=== PATIENT | female | born 1965 | race Caucasian/White ===

== ENCOUNTER 2017-11-10 17:07 | Emergency (ER) | payer SELFPAY ==
[2017-11-10 17:37] LABS: URINE SOURCE CLEAN C
[2017-11-10 17:47] LABS: URINE BILIRUBIN NEGATIVE (NEGATIVE); URINE BLOOD SMALL (NEGATIVE); URINE GLUCOSE (UA) NEGATIVE (NEGATIVE); URINE KETONE NEGATIVE (NEGATIVE); URINE LEUKOCYTE ESTERASE MODERATE (NEGATIVE); URINE MICROSCOPIC INDICATED? YES; URINE NITRATE NEGATIVE (NEGATIVE); URINE PH 6.5 (4.6 - 8.0); URINE PROTEIN 100 mg/dL (NEGATIVE); URINE UROBILINOGEN 0.2 E.U./dL (0.2 - 1.0)
--- NOTE | 2017-11-10 17:52 | ED Physician Chart ---
ED Chief Complaint/HPI - Patient Information Date Seen:: 11/10/17 Time Seen:: 17:40 Chief Complaint:: DYSURIA History of Present Illness:: 52 YR OLD FEMALE WITH FREQUENT URINATION AND DYSURIA PT LOWER ABD DISCOMFORT 8/ 10 BURNING IN NATURE Allergies:: Allergies Allergy/AdvReac Type Severity Reaction Status Date / Time No Known Allergies Allergy Verified 11/10/17 17:31 Vitals:: Vital Signs - 8 hr 11/10/17 17:15 Temp 98.2 F HR 70 RR 18 BP 138/73 O2 Sat % 98 ED Review of Systems - Review of Systems General/Constitutional: No fever Skin: No skin lesions Head: No headache Eyes: No loss of vision ENT: No earache Neck: No neck pain Cardio Vascular: No chest pain Pulmonary: No SOB GI: No vomiting G/U: No dysuria Musculoskeletal: No bone or joint pain Psychiatric: No depression Hematopoietic: No bruising Neurological: No focal symptoms Family Medical History - Family Member Mother History Unknown: Yes ED Septic Shock - . Is Septic Shock (SBP<90, OR Lactate>4 mmol\L) present?: No - <6hrs of presentation: Vital Signs: Vital Signs - 8 hr 11/10/17 17:15 Temp 98.2 F HR 70 RR 18 BP 138/73 O2 Sat % 98 ED Reassessment (Disposition) - Reassessment Reassessment:: DYSURIA UTI - Diagnosis Diagnosis:: UTI DYSURIA ABD PAIN - Aftercare/Follow up Instructions Aftercare/Follow-Up Instructions:: Counseled pt regarding lab results/diagnosis & need follow up - Patient Disposition Condition at Disposition:: Stable
[2017-11-10 18:05] LABS: URINE BACTERIA 1+ /hpf (NONE SEEN); URINE CLARITY HAZY (CLEAR); URINE COLOR YELLOW; URINE EPITHELIAL CELLS FEW /lpf (FEW)
== END 2017-11-10 18:30 | disposition home or self-care (01) ==
LOC: ER 17:07
DX: N39.0 Urinary tract infection, site not specified (principal)
CPT/HCPCS: 99283; 96372; 81001; J0696; Z7502

== ENCOUNTER 2018-03-30 16:20 | Inpatient (IN) | payer MEDICAID ==
[2018-03-30] MEDS ORDERED: Sodium Chloride 0.9% 1,000 ML IV ONE ×2 (16:29→19:16)
--- NOTE | 2018-03-30 16:42 | ED Physician Chart ---
ED Chief Complaint/HPI - Patient Information Date Seen:: 03/30/18 Time Seen:: 16:37 Chief Complaint:: vomiting History of Present Illness:: this is a 53 yo female with generalized abdominal pain associated with vomiting for three days. she is also concerned about vaginal pain that has been there for sometime but hurting more now. she denies having fever and diarrhea. Allergies:: Allergies Allergy/AdvReac Type Severity Reaction Status Date / Time No Known Allergies Allergy Verified 11/10/17 17:31 Vitals:: Vital Signs - 8 hr 03/30/18 16:26 Temp 97.3 F HR 78 RR 22 BP 149/96 O2 Sat % 100 Historian:: Patient Review:: Nurse's Note Reviewed, Old Chart Reviewed ED Review of Systems - Review of Systems General/Constitutional: No fever, No chills, No weight loss, No weakness, No diaphoresis, No edema, No loss of appetite Skin: No skin lesions, No rash, No bruising Head: No headache, No light-headedness Eyes: No loss of vision, No pain, No diplopia ENT: No earache, No nasal drainage, No sore throat, No tinnitus Neck: No neck pain, No swelling, No thyromegaly, No stiffness, No mass noted Cardio Vascular: No chest pain, No palpitations, No PND, No orthopnea, No edema Pulmonary: No SOB, No cough, No sputum, No wheezing GI: Nausea, Vomiting, No diarrhea, Pain, No melena, No hematochezia, No constipation, No hematemesis G/U: No dysuria, No frequency, No hematuria Talent Assistant: Other (vaginal pain) Musculoskeletal: No bone or joint pain, No back pain, No muscle pain Endocrine: No polyuria, No polydipsia Psychiatric: No prior psych history, No depression, No anxiety, No suicidal ideation Hematopoietic: No bruising, No lymphadenopathy Allergic/Immuno: No urticaria, No angioedema Neurological: No syncope, No focal symptoms, No weakness, No paresthesia, No headache, No seizure, No dizziness, No confusion, No vertigo ED Past Medical History - Past Medical History Obtainable: Yes Past Medical History: No significant medical hx Family History: None Social History: Non Smoker, No Alcohol, No Drug Use, Employed Surgical History: Psychiatricy History: None Medication: Reviewed Family Medical History - Family Member Mother History Unknown: Yes ED Physical Exam - Physical Examination General/Constitutional: Awake, Well-developed, well-nourished, Alert, No distress, GCS 15, Non-toxic appearing, Ambulatory Head: Atraumatic Eyes: Lids, conjuctiva normal, PERRL, EOMI Skin: Nl inspection, No rash, No skin lesions, No ecchymosis, Well hydrated, No lymphadenopathy ENMT: External ears, nose nl, Nasal exam nl, Lips, teeth, gums nl Neck: Nontender, Full ROM w/o pain, No JVD, No nuchal rigidity, No bruit, No mass, No stridor Respiratory: Nl effort/Exclusion, Clear to Auscultation, No Wheeze/Rhonchi/Rales Cardio Vascular: RRR, No murmur, gallop, rubs, NL S1 S2 GI: No tenderness/rebounding/guarding (generalized tenderness with mild distention.), No organomegaly, No hernia, Normal BS's, Nondistended, No mass/ bruits, No McBurney tenderness : No CVA tenderness Extremities: No tenderness or effusion, Full ROM, normal strength in all extremities, No edema, Normal digits & nails Neuro/Psych: Alert/oriented, DTR's symmetric, Normal sensory exam, Normal motor strength, Judgement/insight normal, Mood normal, Normal gait, No focal deficits Misc: Normal back, No paraspinal tenderness ED Labs/Radiology/EKG Results - EKG Interpretations EKG Time:: 18:37 Rate & Rhythm: rate = 72, sinus [place]: right axis ED Assessment - Assessment General Assessment: vomiting ED Septic Shock - . Is Septic Shock (SBP<90, OR Lactate>4 mmol\L) present?: No - <6hrs of presentation: Vital Signs: Vital Signs - 8 hr 03/30/18 16:26 Temp 97.3 F HR 78 RR 22 BP 149/96 O2 Sat % 100 ED Reassessment (Disposition) - Diagnosis Diagnosis:: abdominal pain keto acidosis - Aftercare/Follow up Instructions Notes:: this patient will be cared for by dr. barros starting at 1900 hrs
[2018-03-30 17:03] LABS: HEMATOCRIT 35.7 % (41.0-60); HEMOGLOBIN 12.2 gm/dL (12-16); MEAN CELL VOLUME 94.2 fl (81-100); MEAN CORPUSCULAR HEMOGLOBIN 32.1 pg (27.0-31.0); MEAN CORPUSCULAR HGB CONC 34.1 pg (28.0-36.0); MEAN PLATELET VOLUME 7.9 fl; PLATELET COUNT 444 Th/cmm (150-400); RED BLOOD COUNT 3.79 Mil/cmm (3.80-5.10); RED CELL DISTRIBUTION WIDTH 14.7 % (11.5-20.0); WHITE BLOOD COUNT 12.5 Th/cmm (4.8-10.8)
[2018-03-30 17:12] LABS: URINE SOURCE CLEAN C
[2018-03-30 17:15] LABS: URINE BILIRUBIN NEGATIVE (NEGATIVE); URINE BLOOD MODERATE (NEGATIVE); URINE GLUCOSE (UA) NEGATIVE (NEGATIVE); URINE KETONE NEGATIVE (NEGATIVE); URINE LEUKOCYTE ESTERASE MODERATE (NEGATIVE); URINE MICROSCOPIC INDICATED? YES; URINE NITRATE NEGATIVE (NEGATIVE); URINE PROTEIN 100 mg/dL (NEGATIVE); URINE UROBILINOGEN 0.2 E.U./dL (0.2 - 1.0)
[2018-03-30 17:17] LABS: INR 0.96 (0.5-1.4)
[2018-03-30 17:21] LABS: URINE CLARITY HAZY (CLEAR); URINE COLOR YELLOW
[2018-03-30 17:21] LABS: ALB/GLOB RATIO 1.7 (1.0-1.8); ALBUMIN 4.5 gm/dL (3.7-5.3); BILIRUBIN,TOTAL 0.2 mg/dL (0.3-1.0); CREATININE - SERUM 1.6 mg/dL (0.6-1.2); GFR AFRICAN-AMERICAN 43.5 ml/min (>90); POTASSIUM SERUM 3.3 mEq/L (3.5-5.1); TOTAL PROTEIN,SERUM 7.2 gm/dL (6.0-8.3)
[2018-03-30 17:22] LABS: URINE BACTERIA MANY /hpf (NONE SEEN); URINE EPITHELIAL CELLS FEW /lpf (FEW); URINE RBC 0-2 /hpf (0-5)
[2018-03-30] MEDS ORDERED: cefTRIAXone 1 GM in Sodium Chloride 0.9% 50 ML IV ONE (17:30)
[2018-03-30 17:47] LABS: CARBON DIOXIDE 8.3 mEq/L (21.0-31.0); CHOLESTEROL 160 mg/dL (<200); HDL -HIGH DENSITY LIPOPROTEIN 68 mg/dL (23-92); TRIGLYCERIDES 193 mg/dL (<150)
[2018-03-30] MEDS ORDERED: KCL 20mEq/100mL Premix 40 MEQ/200 ML PIGGYBACK IV ONE (17:56)
[2018-03-30] MEDS: KCL 20mEq/100mL Premix 20 MEQ/100 ML PIGGYBACK IV SCH ×2 (17:58→20:08)
[2018-03-30 18:05] LABS: % BASOPHILS 0.3 % (0.0-2.0); % EOSINOPHILS 3.5 % (0.0-5.0); % LYMPHOCYTES 14.5 % (20.0-50.0); % MONOCYTES 1.5 % (2.0-10.0); % NEUTROPHILS 80.2 % (40.0-80.0)
[2018-03-30 18:06] LABS: BAND NEUTROPHILE 2 % (0-10); LYMPHOCYTE 14 % (20-50); MONOCYTE 4 % (2-10); NEUTROPHILS 78 % (40-80)
[2018-03-30 18:07] LABS: BASOPHIL 0 % (0-3); EOSINOPHIL 2 % (0-5)
[2018-03-30] MEDS ORDERED: IOHEXOL 350mgI/mL 150mL IV ONE (18:11)
[2018-03-30] MEDS ORDERED: Sodium Bicarbonate 8.4% 50mEq PFS IVP STA (18:31)
[2018-03-30] MEDS ORDERED: Sodium Bicarbonate 8.4% 50mEq PFS IVP ONE (18:39)
[2018-03-30 19:18] LABS: ALLEN TEST Positive; pH 7.13 (7.35-7.45)
[2018-03-30 21:53] VITALS: BP 140/75
[2018-03-30] MEDS ORDERED: metroNIDAZOLE 500mg/NS 100mL 500 MG/100 ML BAG IV ONE (22:03)
[2018-03-30] MEDS: metroNIDAZOLE 500mg/NS 100mL 500 MG/100 ML BAG IV SCH (22:08)
[2018-03-30] MEDS: D5-0.9%NS 1,000 ML IV SCH (22:09)
[2018-03-31] MEDS: metroNIDAZOLE 500mg/NS 100mL 500 MG/100 ML BAG IV SCH ×3 (04:52→21:08)
[2018-03-31 06:36] LABS: % BASOPHILS 1.6 % (0.0-2.0); % EOSINOPHILS 4.3 % (0.0-5.0); % LYMPHOCYTES 21.6 % (20.0-50.0); % MONOCYTES 8.1 % (2.0-10.0); % NEUTROPHILS 64.4 % (40.0-80.0); BASOPHILE ABSOLUTE 0.2 Th/cumm (0-0.2); EOSINOPHILE ABSOLUTE 0.4 Th/cmm (0.1-0.4); HEMOGLOBIN 9.9 gm/dL (12-16); LYMPHOCYTE ABSOLUTE 2.1 Th/cmm (1.5-3.0); MEAN CORPUSCULAR HEMOGLOBIN 31.6 pg (27.0-31.0); MEAN CORPUSCULAR HGB CONC 33.6 pg (28.0-36.0); MEAN PLATELET VOLUME 7.6 fl; MONOCYTE ABSOLUTE 0.8 Th/cmm (0.3-1.0); NEUTROPHILE ABSOLUTE 6.4 Th/cmm (1.8-8.0); RED BLOOD COUNT 3.13 Mil/cmm (3.80-5.10); RED CELL DISTRIBUTION WIDTH 14.9 % (11.5-20.0)
[2018-03-31 06:46] LABS: ALB/GLOB RATIO 1.7 (1.0-1.8); ALBUMIN 3.2 gm/dL (3.7-5.3); ALKALINE PHOSPHATASE 58 U/L (34-104); ANION GAP 11.5 (7.0-16.0); BILIRUBIN,TOTAL 0.2 mg/dL (0.3-1.0); BUN - UREA NITROGEN 9 mg/dL (7-25); CALCIUM SERUM 7.6 mg/dL (8.6-10.3); CHLORIDE 121 mEq/L (98-107); CREATININE - SERUM 1.1 mg/dL (0.6-1.2); GFR AFRICAN-AMERICAN > 60.0 ml/min (>90); GFR NON AFRICAN-AMERICAN 55.4 ml/min; GLUCOSE 89 mg/dL (70-105); POTASSIUM SERUM 3.3 mEq/L (3.5-5.1); SGOT 8 U/L (13-39); SGPT/ALT 4 U/L (7-52); SODIUM SERUM 139 mEq/L (136-145); TOTAL PROTEIN,SERUM 5.1 gm/dL (6.0-8.3)
[2018-03-31 06:49] LABS: HEMATOCRIT 29.4 % (41.0-60); PLATELET COUNT 318 Th/cmm (150-400); WHITE BLOOD COUNT 9.9 Th/cmm (4.8-10.8)
[2018-03-31 07:16] LABS: CARBON DIOXIDE 9.8 mEq/L (21.0-31.0)
[2018-03-31 07:29] LABS: pH 7.18 (7.35-7.45)
[2018-03-31 07:30] LABS: ALLEN TEST Positive
--- NOTE | 2018-03-31 08:35 | Diagnostic Imaging Report ---
CT scan abdomen and pelvis with intravenous contrast HISTORY: Vomiting Total DLP equals 561 CTDI equals 12.1 Following administration of intravenous contrast, axial sections were obtained from the xiphoid process down to the pubic symphysis. The liver exhibits a homogeneous parenchyma. No focal lesions. The spleen appears normal. Multiple gallstones are seen. No focal abnormality seen within the pancreas. No significant focal renal lesions. No hydronephrosis. The exam of the pelvis demonstrates preservation of normal fat planes. No abnormal soft tissue masses or abnormal fluid collections. IMPRESSION: 1. No acute abnormalities 2. Cholelithiasis
[2018-03-31] MEDS: Levofloxacin 500mg/100mL 500 MG/100 ML BAG IV SCH (08:46)
[2018-03-31] MEDS: D5-0.9%NS 1,000 ML IV SCH ×2 (14:45→18:08)
[2018-03-31] MEDS ORDERED: Probiotic Screen MC PRN (15:31)
[2018-03-31] MEDS ORDERED: Sodium Bicarbonate 8.4% 50mEq PFS IVP ONE (16:30)
[2018-03-31] MEDS: Lactobacillus Rhamnosus GG 15 Billion CFU CAP.SPRINK PO SCH (17:00)
--- NOTE | 2018-03-31 18:09 | History & Physical ---
ADMIT DATE: PATIENT IDENTIFICATION: A 53-year-old female. CHIEF COMPLAINT: Diarrhea for last 3 days. HISTORY OF PRESENT ILLNESS: A 53-year-old female with no significant past medical history. Stated that she was admitted to [facility] in month of February for nausea, vomiting, diarrhea and she was also noted to have at that time vaginal cyst. She stayed in the hospital for 5 days and she was discharged. According to the patient, she did feel better, but last 3 days, she started her diarrhea acute in onset and the patient stated that she was a little nauseated. According to her the severity of diarrhea is less as compared to last time. The patient was evaluated in the Emergency Room and noted to have metabolic acidosis with diarrhea. The patient was admitted to the hospital for further treatment. PAST MEDICAL HISTORY: None. MEDICATIONS AT HOME: None. ALLERGIES: None. SOCIAL HISTORY: She works at [employer]. She has no history of smoking cigarette, alcohol, or drug use as per her account. FAMILY MEDICAL HISTORY: Negative for diabetes and hypertension. REVIEW OF SYSTEMS: The patient denies any headache, blurred vision, double vision, dysphagia, odynophagia, runny nose, stuffy nose, fever, chills, cough, chest pain, shortness of breath, palpitation, dizziness, nausea, vomiting, hematuria, hematochezia, dysuria, seizure, syncopal episode, or any skin lesion. PHYSICAL EXAMINATION: GENERAL: The patient is alert, awake, oriented, lying comfortably without any acute distress. VITAL SIGNS: Temperature 98.1, pulse 71, respiratory rate 18, blood pressure 156/70. HEENT: Normocephalic, atraumatic. Extraocular muscles are intact. Tongue were pink and coated. Poor dentition noted. No oral lesion, no exudate. No sinus tenderness. External auditory canal and tympanic membranes are well visualized. NECK: Supple, no JVD, no hepatojugular reflex. No lymphadenopathy, thyromegaly, or carotid bruit. HEART: Both heart sounds are regular. No S3, no S4, no murmur. CHEST AND LUNGS: Equal in expansion, no expiratory wheezing. ABDOMEN: Soft. No guarding or rigidity. Bowel sounds present. No palpable mass. EXTREMITIES: No edema, no cyanosis, no calf tenderness noted. NEUROLOGIC: Nonfocal. AVAILABLE DIAGNOSTIC DATA: Has been reviewed. CLINICAL IMPRESSION: 1. Acute enteritis. Etiology needs to determine, rule out infectious in etiology since the patient was recently admitted, C. diff needs to consider. 2. Metabolic acidosis with anion gap of 17 on admission. 3. Electrolyte imbalance. 4. Leukocytosis with left shift. PLAN: 1. Admit this patient to telemetry unit. 2. Correct electrolytes. 3. IV fluid. 4. IV empirical antibiotic. 5. Stool studies. 6. ID and GI consult. 7. General nursing care. 8. Follow lab. 9. Follow lifestyle consultant recommendation. 10. Symptoms management. 11. Care plan reviewed and discussed with staff. JOB# [id number]
--- NOTE | 2018-04-01 03:39 | Consultation ---
DATE OF CONSULTATION: 03/31/2018 INFECTIOUS DISEASE CONSULTATION REFERRING PHYSICIAN: Dr. Vaca. REASON FOR CONSULTATION: Leukocytosis and enteritis. HISTORY OF PRESENT ILLNESS: The patient is a 53-year-old female with non-significant past medical history, presented to the ER with generalized abdominal pain associated with nausea, vomiting, and diarrhea. The patient also complained of vagina pain with inflamed labia. The patient has no fever, no chills. On initial evaluation, the patient's temperature was 97.3 degrees Fahrenheit, pulse is 78, blood pressure ____ and respirations 22. WBC count of ____ and neutrophil 80.2%. The patient's ABG showed pH 7.13 and with a pCO2 of 23, bicarbonate was 9.4. Sodium 137. The patient's creatinine was 1.6. IV fluid boluses and bicarbonate was given, but her ABG still showed pH 7.18. Antibiotic greer, the patient was started on Rocephin and Flagyl. ID consult was called for antibiotic management. PAST MEDICAL HISTORY: None significant. ALLERGIES: NKDA. MEDICATIONS: See medication reconciliation sheet. ANTIBIOTIC GREER: Rocephin and Flagyl. SOCIAL HISTORY: The patient has no smoking or alcohol. REVIEW OF SYSTEMS: GENERAL: The patient has no fever, no chills. HEENT: No diplopia, no photophobia, no sore throat. RESPIRATORY: No cough, no shortness of breath. CVS: No chest pain. No palpitation. GASTROINTESTINAL: No nausea, no vomiting, and diarrhea. It was associated with lower abdominal pain. GENITOURINARY: The patient complains of pain in the vaginal area. MUSCULOSKELETAL: No muscle pain, no joint pain. NEUROLOGIC: No headache, no dizziness, no focal weakness. PHYSICAL EXAMINATION: VITAL SIGNS: Shows temperature is 98.1, pulse 63, respiratory rate is 16, blood pressure 161/69, oxygen saturation 99%. GENERAL: The patient is comfortable lying in bed, not in acute distress. Obese. HEENT: Head is normocephalic, atraumatic. Oral cavity moist, pink tongue. Eyes: No pallor, no icterus. PERRLA, EOMI. NECK: Supple, no JVD, no carotid bruit. Trachea midline. CHEST: Bilateral breath sounds. No crackles or wheezing. HEART: S1, S2 within normal limits. Regular rhythm. No murmur, no gallop. ABDOMEN: Soft, has tenderness in lower abdomen. Bowel sounds present. EXTREMITIES: No cyanosis, no clubbing, no edema. NEUROLOGIC: Alert, awake, and oriented x 3. No focal deficit. LABORATORY DATA: WBC 9900, hemoglobin 9.9, hematocrit 29.4, platelets are 318,000. Neutrophils 64%. Sodium is 139, potassium 3.3, chloride 121, bicarbonate is 9.9, BUN is 99, creatinine 1.1 and glucose is 89. AST 8, ALT 4, alkaline phosphatase is 58. Urinalysis showed moderate blood, leukoesterase moderate, WBC 6-[address] A [address] scan of the abdomen and pelvis has revealed, no acute abnormality, cholelithiasis. IMPRESSION AND PLAN: 1. Leukocytosis, most likely reactive. 2. Gastroenteritis. 3. Vaginitis. 4. Severe metabolic acidosis with normal creatinine, bicarbonate is very low, and pCO2 was also on lower side. Recommend to check lactic acid stat. We will give Bicitra and will give 1 amp of bicarbonate. 5. Anemia. RECOMMENDATIONS: Continue IVF. Continue Rocephin and Flagyl. Add Diflucan for vaginitis. Give Bicitra once or twice a day and give 1 ampule of bicarbonate now. Further care. Antibiotic greer, vancomycin, Diflucan, and meropenem. IV fluid support. Thank you, Dr. Vaca for involving me in taking care of this patient. JOB# [id number] JULES
[2018-04-01 04:53] LABS: ALLEN TEST yes
[2018-04-01 04:54] LABS: pH 7.26 (7.35-7.45)
[2018-04-01] MEDS: metroNIDAZOLE 500mg/NS 100mL 500 MG/100 ML BAG IV SCH ×3 (05:12→20:03)
[2018-04-01] MEDS: D5-0.9%NS 1,000 ML IV SCH ×2 (05:13→21:00)
[2018-04-01] MEDS: Morphine Sulfate 2 mg/mL 1mL Syr IV PRN ×3 (06:03→19:22)
[2018-04-01 07:54] LABS: % LYMPHOCYTES 19.6 % (20.0-50.0); % MONOCYTES 6.1 % (2.0-10.0); % NEUTROPHILS 68.3 % (40.0-80.0); BASOPHILE ABSOLUTE 0.1 Th/cumm (0-0.2); EOSINOPHILE ABSOLUTE 0.4 Th/cmm (0.1-0.4); HEMATOCRIT 28.8 % (41.0-60); HEMOGLOBIN 9.6 gm/dL (12-16); LYMPHOCYTE ABSOLUTE 1.7 Th/cmm (1.5-3.0); MEAN CELL VOLUME 94.7 fl (81-100); MEAN CORPUSCULAR HEMOGLOBIN 31.7 pg (27.0-31.0); MEAN CORPUSCULAR HGB CONC 33.5 pg (28.0-36.0); MEAN PLATELET VOLUME 7.9 fl; MONOCYTE ABSOLUTE 0.5 Th/cmm (0.3-1.0); NEUTROPHILE ABSOLUTE 5.8 Th/cmm (1.8-8.0); PLATELET COUNT 291 Th/cmm (150-400); RED BLOOD COUNT 3.04 Mil/cmm (3.80-5.10); RED CELL DISTRIBUTION WIDTH 14.5 % (11.5-20.0); WHITE BLOOD COUNT 8.5 Th/cmm (4.8-10.8)
[2018-04-01 08:12] LABS: ALB/GLOB RATIO 1.7 (1.0-1.8); ALBUMIN 3.2 gm/dL (3.7-5.3); ALKALINE PHOSPHATASE 54 U/L (34-104); ANION GAP 8.7 (7.0-16.0); BILIRUBIN,TOTAL 0.2 mg/dL (0.3-1.0); BUN - UREA NITROGEN 6 mg/dL (7-25); CALCIUM SERUM 8.5 mg/dL (8.6-10.3); CARBON DIOXIDE 13.1 mEq/L (21.0-31.0); CHLORIDE 122 mEq/L (98-107); CREATININE - SERUM 0.9 mg/dL (0.6-1.2); GFR AFRICAN-AMERICAN > 60.0 ml/min (>90); GFR NON AFRICAN-AMERICAN > 60.0 ml/min; GLUCOSE 98 mg/dL (70-105); MAGNESIUM 2.2 mg/dL (1.9-2.7); SGOT 7 U/L (13-39); SGPT/ALT 3 U/L (7-52); SODIUM SERUM 141 mEq/L (136-145); TOTAL PROTEIN,SERUM 5.1 gm/dL (6.0-8.3)
[2018-04-01 08:24] LABS: POTASSIUM SERUM 2.8 mEq/L (3.5-5.1)
[2018-04-01] MEDS: Lactobacillus Rhamnosus GG 15 Billion CFU CAP.SPRINK PO SCH (09:01)
[2018-04-01] MEDS: Levofloxacin 500mg/100mL 500 MG/100 ML BAG IV SCH (09:32)
[2018-04-01] MEDS ORDERED: Potassium Chloride 20 mEq ER Tab PO ONE (10:33)
--- NOTE | 2018-04-01 16:29 | Progress Notes ---
DATE: 04/01/2018 PATIENT'S ID: A 53-year-old female. SUBJECTIVE: The patient seen and examined. The patient continues to complain of the perineal pain. The patient has these symptoms for a while. According to the patient, she was seen by Emergency Room MD at [facility] as well as the physician assistant primary care there as well. Though, the patient stated that her diarrhea is today better, but has vomiting and significant amount of pain. The patient was given morphine with no improvement. OBJECTIVE: VITAL SIGNS: Temperature 98, pulse is 65, respiratory 18, blood pressure 132/84. HEENT: No facial asymmetry. NECK: Supple, no JVD. HEART: Regular. CHEST AND LUNGS: Equal in expansion, no expiratory wheezing. ABDOMEN: Soft, no guarding or rigidity. EXTREMITIES: No edema. GENITOURINARY: Perineal examinations, there is a cauliflower growth at the left vulvar area noted with significant amount of discharge also noted. Peripheral pulses are +2. CLINICAL IMPRESSIONS: 1. Significant amount of perineal pain with cauliflower growth at the left vulvar area, high probability of malignancy, needs to be evaluated at different facility where ever since we do not have a Gynecology services available. 2. Hypokalemia. 3. Normocytic normochromic anemia. 4. Metabolic acidosis, improving. 5. Diarrhea, improving. 6. Vomiting, probably from the medications. PLAN: 1. In the view of her symptoms, we will replace the potassium. 2. Refer this patient will require tertiary care or at the facility where Gynecology service is available for evaluation of the left vulvar mass. The patient has been informed that there is a very high possibility that it could be malignancy. The patient needs to be evaluated on as soon as possible basis since the patient is going around to the different Emergency Room. 3. We will continue empirical antibiotics and continue to cover when unable to provide symptomatic treatment as well. The patient has fully understood about the diagnosis and treatment plan. JOB# [id number]
--- NOTE | 2018-04-01 20:55 | Infectious Disease Prog Note ---
Infectious Disease Subjective - Review of Systems Service Date: 04/01/18 Events since last encounter: No new change, no fever. Infectious Disease Objective - Results Result Diagrams: 04/01/18 07:32 04/01/18 07:32 Recent Labs: Laboratory Last Values WBC 8.5 Th/cmm (4.8-10.8) 04/01/18 07:32 RBC 3.04 Mil/cmm (3.80-5.10) L 04/01/18 07:32 Hgb 9.6 gm/dL (12-16) L 04/01/18 07:32 Hct 28.8 % (41.0-60) L 04/01/18 07:32 MCV 94.7 fl (81-100) 04/01/18 07:32 MCH 31.7 pg (27.0-31.0) H 04/01/18 07:32 MCHC Differential 33.5 pg (28.0-36.0) 04/01/18 07:32 RDW 14.5 % (11.5-20.0) 04/01/18 07:32 Plt Count 291 Th/cmm (150-400) 04/01/18 07:32 MPV 7.9 fl 04/01/18 07:32 Add Manual Diff 03/30/18 16:55 Neutrophils % 68.3 % (40.0-80.0) 04/01/18 07:32 Band Neutrophils % 2 % (0-10) 03/30/18 16:55 Lymphocytes % 19.6 % (20.0-50.0) L 04/01/18 07:32 Monocytes % 6.1 % (2.0-10.0) 04/01/18 07:32 Eosinophils % 5.0 % (0.0-5.0) 04/01/18 07:32 Basophils % 1.0 % (0.0-2.0) 04/01/18 07:32 Neutrophils (Manual) 78 % (40-80) 03/30/18 16:55 Lymphocytes 14 % (20-50) L 03/30/18 16:55 Monocytes 4 % (2-10) 03/30/18 16:55 Eosinophils 2 % (0-5) 03/30/18 16:55 Basophils 0 % (0-3) 03/30/18 16:55 PT 10.0 SECONDS (9.5-11.5) 03/30/18 16:55 INR 0.96 (0.5-1.4) 03/30/18 16:55 PTT (Actin FS) 25.7 SECONDS (26.0-38.0) L 03/30/18 16:55 Specimen Source arterial 04/01/18 05:00 Sample Site right radial 04/01/18 05:00 pH 7.26 (7.35-7.45) L 04/01/18 05:00 pCO2 27.0 mmHg (35.0-45.0) L 04/01/18 05:00 pO2 95.0 mmHg (80.0-100.0) 04/01/18 05:00 HCO3 14.4 mEq/L (20.0-26.0) L 04/01/18 05:00 Base Excess -13.4 mEq/L (-3.0-3.0) L 04/01/18 05:00 O2 Saturation 96.0 % (92.0-100.0) 04/01/18 05:00 Jeremiah Test yes 04/01/18 05:00 Vent Rate n/a 04/01/18 05:00 Inspired O2 21 04/01/18 05:00 Tidal Volume n/a 04/01/18 05:00 PEEP n/a 04/01/18 05:00 Pressure (ins/psv/peep) n/a 04/01/18 05:00 Critical Value abroedel 04/01/18 05:00 Sodium 141 mEq/L (136-145) 04/01/18 07:32 Potassium 2.8 mEq/L (3.5-5.1) L* 04/01/18 07:32 Chloride 122 mEq/L (98-107) H 04/01/18 07:32 Carbon Dioxide 13.1 mEq/L (21.0-31.0) L 04/01/18 07:32 Anion Gap 8.7 (7.0-16.0) 04/01/18 07:32 BUN 6 mg/dL (7-25) L 04/01/18 07:32 Creatinine 0.9 mg/dL (0.6-1.2) 04/01/18 07:32 Est GFR ( Amer) > 60.0 ml/min (>90) 04/01/18 07:32 Est GFR (Non-Af Amer) > 60.0 ml/min 04/01/18 07:32 BUN/Creatinine Ratio 6.7 04/01/18 07:32 Glucose 98 mg/dL (70-105) 04/01/18 07:32 Whole Bld Lactic Acid 0.83 mmol/L (0.60-1.99) 03/31/18 15:50 Calcium 8.5 mg/dL (8.6-10.3) L 04/01/18 07:32 Magnesium 2.2 mg/dL (1.9-2.7) 04/01/18 07:32 Total Bilirubin 0.2 mg/dL (0.3-1.0) L 04/01/18 07:32 AST 7 U/L (13-39) L 04/01/18 07:32 ALT 3 U/L (7-52) L 04/01/18 07:32 Alkaline Phosphatase 54 U/L (34-104) 04/01/18 07:32 Troponin I < 0.01 ng/mL (0.01-0.05) L 03/30/18 16:55 Total Protein 5.1 gm/dL (6.0-8.3) L 04/01/18 07:32 Albumin 3.2 gm/dL (3.7-5.3) L 04/01/18 07:32 Globulin 1.9 gm/dL 04/01/18 07:32 Albumin/Globulin Ratio 1.7 (1.0-1.8) 04/01/18 07:32 Triglycerides 193 mg/dL (<150) H 03/30/18 16:55 Cholesterol 160 mg/dL (<200) 03/30/18 16:55 LDL Cholesterol Direct 64 mg/dL (75-193) L 03/30/18 16:55 HDL Cholesterol 68 mg/dL (23-92) 03/30/18 16:55 TSH 0.26 uIU/ml (0.34-5.60) L 03/30/18 16:55 Serum , Qual NEGATIVE (NEGATIVE) 03/30/18 16:55 Urine Source CLEAN C 03/30/18 16:50 Urine Color YELLOW 03/30/18 16:50 Urine Clarity HAZY (CLEAR) 03/30/18 16:50 Urine pH 6.0 (4.6 - 8.0) 03/30/18 16:50 Ur Specific [place] 1.025 (1.005-1.030) 03/30/18 16:50 Urine Protein 100 mg/dL (NEGATIVE) H 03/30/18 16:50 Urine Glucose (UA) NEGATIVE mg/dL (NEGATIVE) 03/30/18 16:50 Urine Ketones NEGATIVE mg/dL (NEGATIVE) 03/30/18 16:50 Urine Blood MODERATE (NEGATIVE) H 03/30/18 16:50 Urine Nitrate NEGATIVE (NEGATIVE) 03/30/18 16:50 Urine Bilirubin NEGATIVE (NEGATIVE) 03/30/18 16:50 Urine Urobilinogen 0.2 E.U./dL (0.2 - 1.0) 03/30/18 16:50 Ur Leukocyte Esterase MODERATE (NEGATIVE) H 03/30/18 16:50 Urine RBC 0-2 /hpf (0-5) 03/30/18 16:50 Urine WBC 6-10 /hpf (0-5) H 03/30/18 16:50 Ur Epithelial Cells FEW /lpf (FEW) 03/30/18 16:50 Urine Bacteria MANY /hpf (NONE SEEN) H 03/30/18 16:50 - Physical Exam Vitals and I&O: Vital Signs Temp 98.3 F 04/01/18 16:04 Pulse 70 04/01/18 16:04 Resp 18 04/01/18 16:04 BP 128/75 04/01/18 16:04 Pulse Ox 98 04/01/18 16:04 Intake & Output 04/01/18 04/01/18 04/02/18 06:59 18:59 06:59 Intake Total 1200 200 Balance 1200 200 Intake: Intake, IV Amount 1200 200 D5-0.9%Ns 1,000 ml @ 125 1000 mls/hr IV .Q8H [facility] Rx#: [id number] Levofloxacin 500mg/100mL 100 500 mg In 100 ml @ 100 mls/hr IV DAILY [facility] Rx#: [id number] metroNIDAZOLE 500mg/NS 200 100 100mL 500 mg In 100 ml @ 100 mls/hr IV Q8HR [facility] Rx #:[id number] Active Medications: Current Medications Citric Acid/Sodium Citrate (Bicitra) 30 ml PO BID WILLIE Stop: 05/30/18 16:59 Last Admin: 04/01/18 17:36 Dose: 30 ml Fluconazole (Diflucan) 100 mg PO DAILY [facility] Stop: 05/30/18 15:59 Last Admin: 04/01/18 09:01 Dose: 100 mg Dextrose/Sodium Chloride (D5-0.9%Ns) 1,000 mls @ 125 mls/hr IV .Q8H WILLIE Stop: 05/29/18 20:59 Last Admin: 04/01/18 05:13 Dose: 125 mls/hr Levofloxacin (Levaquin Pb) 500 mg in 100 mls @ 100 mls/hr IV DAILY WILLIE Stop: 05/30/18 08:59 Last Infusion: 04/01/18 10:32 Dose: Infused Metronidazole (Flagyl) 500 mg in 100 mls @ 100 mls/hr IV Q8HR WILLIE Stop: 05/29/18 20:59 Last Admin: 04/01/18 20:03 Dose: 100 mls/hr Lactobacillus Rhamnosus (Culturelle 15b) 1 each PO DAILY WILLIE Stop: 05/30/18 15:59 Last Admin: 04/01/18 09:01 Dose: 1 each Miscellaneous (Probiotic Screen) 1 ea PRN PRN PRN Reason: PROTOCOL Stop: 05/30/18 15:30 Morphine Sulfate (Morphine) 2 mg IV Q6HR PRN PRN Reason: Pain (Moderate) Stop: 05/31/18 05:25 Last Admin: 04/01/18 19:22 Dose: 2 mg Ondansetron HCl (Zofran) 4 mg IV Q6H PRN PRN Reason: Nausea Stop: 05/29/18 20:48 Last Admin: 04/01/18 19:18 Dose: 4 mg General: no acute distress, well developed, well nourished HEENT: atraumatic, normocephalic, PERRLA, EOMI Neck: supple, no thyromegaly Cardiovascular: S1S2, regular Lungs: clear to auscultation bilaterally, clear to percussion Abdomen: soft, no tender, no distended Extremities: no cyanosis, no clubbing, no edema Neurological: awake, alert, oriented Skin: intact - Procedures Procedures: Procedures Procedure Code Date DX ULTRASOUND-ABDOMEN 88.76 01/28/97 Infectious Disease Assmt/Plan - Problem List Patient Problems: All Active Problems NAUSEA/VOMITING/DIARRHEA; VAGINAL LESION (Acute) - Assessment Assessment: 1. Leukocytosis improved. 2. Gastroenteritis. 3. Vaginitis. 4. Metabolic acidosis improving. Lactic acid is normal. 5. Anemia. - Plan Plan: Continue same treatment. Gynecological consult
[2018-04-02] MEDS: Morphine Sulfate 2 mg/mL 1mL Syr IV PRN ×5 (00:42→20:28)
[2018-04-02] MEDS: metroNIDAZOLE 500mg/NS 100mL 500 MG/100 ML BAG IV SCH ×3 (05:04→20:27)
[2018-04-02] MEDS: D5-0.9%NS 1,000 ML IV SCH ×2 (05:04→18:06)
[2018-04-02] MEDS: Levofloxacin 500mg/100mL 500 MG/100 ML BAG IV SCH (08:32)
[2018-04-02] MEDS: Lactobacillus Rhamnosus GG 15 Billion CFU CAP.SPRINK PO SCH (08:32)
--- NOTE | 2018-04-02 09:12 | Diagnostic Imaging Report ---
Ultrasound pelvis HISTORY: Perineal mass COMPARISON: None Technique: Longitudinal and transverse sonographic sector images of the pelvis were obtained transabdominally only. Findings: Exam is limited due to bowel gas and as patient refused transvaginal portion of the exam. The uterus measures 5.7 x 3.5 x 5.2 cm demonstrates a heterogeneous echotexture. The endometrial echo complex was not well visualized. The ovaries were also not well visualized. There is indeterminate area/mass seen along the left lower pelvis region in the area of concern measuring 3.1 x 1.9 cm. This area demonstrates peripheral decreased echogenicity and central increased echogenicity. No gross free fluid identified. IMPRESSION: Limited exam. There is indeterminate area/mass lesion along the left lower pelvis, in the area of concern measuring 3.1 x 1.9 cm. Exact location is difficult to determine however, this appears to correspond to the site of pain. This may be due to infectious inflammatory or neoplastic process. Please correlate with clinical findings. Follow-up is assessment recommended The ovaries are not visualized. no evidence of free fluid.
[2018-04-02] MEDS ORDERED: Potassium Chloride 20 mEq ER Tab PO ONE (09:23)
[2018-04-02] MEDS: Potassium Chloride 20 mEq ER Tab PO SCH (15:37)
[2018-04-03] MEDS: Morphine Sulfate 2 mg/mL 1mL Syr IV PRN ×3 (01:05→09:09)
--- NOTE | 2018-04-03 04:08 | Progress Notes ---
DATE: SUBJECTIVE: The patient seen and examined. The patient has no diarrhea, still feels nauseated, having significant amount of pain at the vulval area. According to her, she is having a little bit of pain. OBJECTIVE: VITAL SIGNS: Temperature 98, pulse is 56, respirations 18, blood pressure 126/67. HEENT: No facial asymmetry. NECK: Supple. HEART: Regular. CHEST: Lung equal in expansion, no expiratory wheezing. ABDOMEN: Soft. No guarding or rigidity. Bowel sounds are present. No palpable mass. EXTREMITIES: No edema. AVAILABLE LABORATORY DATA AND DIAGNOSTIC DATA: White count of 8.5, hemoglobin of 9.6, and platelet count of 291. PH of 7.26, pCO2 27. Potassium of 2.8, BUN and creatinine is 6 and 0.9, CO2 level of 13.1, BUN and creatinine 6 and 0.9. CLINICAL IMPRESSION: 1. Hypokalemia. 2. Metabolic acidosis, improving. 3. Left vulvar mass. 4. Gastroenteritis, improving. PLAN: 1. Replace potassium. 2. Case management to provide resources to have this patient to have workup and management for the left vulvar mass treatment. 3. Continue to provide empirical antibiotic. 4. Follow lab and follow consult recommendations. Care plan has been reviewed and discussed with staff. JOB# [id number]
[2018-04-03] MEDS: metroNIDAZOLE 500mg/NS 100mL 500 MG/100 ML BAG IV SCH (05:06)
[2018-04-03] MEDS: D5-0.9%NS 1,000 ML IV SCH (05:06)
[2018-04-03 06:05] LABS: ALLEN TEST Positive; pH 7.31 (7.35-7.45)
[2018-04-03 06:47] LABS: % LYMPHOCYTES 24.3 % (20.0-50.0); % MONOCYTES 7.8 % (2.0-10.0); % NEUTROPHILS 55.9 % (40.0-80.0); BASOPHILE ABSOLUTE 0.2 Th/cumm (0-0.2); EOSINOPHILE ABSOLUTE 0.9 Th/cmm (0.1-0.4); HEMATOCRIT 30.1 % (41.0-60); LYMPHOCYTE ABSOLUTE 2.2 Th/cmm (1.5-3.0); MEAN CELL VOLUME 95.1 fl (81-100); MEAN CORPUSCULAR HEMOGLOBIN 31.7 pg (27.0-31.0); MEAN CORPUSCULAR HGB CONC 33.4 pg (28.0-36.0); MEAN PLATELET VOLUME 8.3 fl; MONOCYTE ABSOLUTE 0.7 Th/cmm (0.3-1.0); NEUTROPHILE ABSOLUTE 4.9 Th/cmm (1.8-8.0); PLATELET COUNT 280 Th/cmm (150-400); RED BLOOD COUNT 3.16 Mil/cmm (3.80-5.10); RED CELL DISTRIBUTION WIDTH 14.9 % (11.5-20.0); WHITE BLOOD COUNT 8.9 Th/cmm (4.8-10.8)
[2018-04-03 06:54] LABS: ALB/GLOB RATIO 1.6 (1.0-1.8); ALBUMIN 3.1 gm/dL (3.7-5.3); ALKALINE PHOSPHATASE 63 U/L (34-104); BILIRUBIN,TOTAL 0.3 mg/dL (0.3-1.0); BUN - UREA NITROGEN 5 mg/dL (7-25); CALCIUM SERUM 8.4 mg/dL (8.6-10.3); CARBON DIOXIDE 17.2 mEq/L (21.0-31.0); CHLORIDE 118 mEq/L (98-107); CREATININE - SERUM 0.9 mg/dL (0.6-1.2); GFR AFRICAN-AMERICAN > 60.0 ml/min (>90); GFR NON AFRICAN-AMERICAN > 60.0 ml/min; GLUCOSE 82 mg/dL (70-105); POTASSIUM SERUM 3.2 mEq/L (3.5-5.1); SGOT 7 U/L (13-39); SGPT/ALT 3 U/L (7-52); SODIUM SERUM 142 mEq/L (136-145); TOTAL PROTEIN,SERUM 5.1 gm/dL (6.0-8.3)
[2018-04-03] MEDS: Lactobacillus Rhamnosus GG 15 Billion CFU CAP.SPRINK PO SCH (08:22)
[2018-04-03] MEDS: Potassium Chloride 20 mEq ER Tab PO SCH (08:22)
[2018-04-03] MEDS: Levofloxacin 500mg/100mL 500 MG/100 ML BAG IV SCH (08:23)
[2018-04-03] MEDS ORDERED: Potassium Chloride 20 mEq ER Tab PO ONE (09:02)
--- NOTE | 2018-04-03 13:03 | Infectious Disease Prog Note ---
Infectious Disease Subjective - Review of Systems Service Date: 04/03/18 Subjective: There is no new change, no fever. Infectious Disease Objective - Results Result Diagrams: 04/03/18 06:06 04/03/18 06:06 Recent Labs: Laboratory Last Values WBC 8.9 Th/cmm (4.8-10.8) 04/03/18 06:06 RBC 3.16 Mil/cmm (3.80-5.10) L 04/03/18 06:06 Hgb 10.0 gm/dL (12-16) L 04/03/18 06:06 Hct 30.1 % (41.0-60) L 04/03/18 06:06 MCV 95.1 fl (81-100) 04/03/18 06:06 MCH 31.7 pg (27.0-31.0) H 04/03/18 06:06 MCHC Differential 33.4 pg (28.0-36.0) 04/03/18 06:06 RDW 14.9 % (11.5-20.0) 04/03/18 06:06 Plt Count 280 Th/cmm (150-400) 04/03/18 06:06 MPV 8.3 fl 04/03/18 06:06 Add Manual Diff 03/30/18 16:55 Neutrophils % 55.9 % (40.0-80.0) 04/03/18 06:06 Band Neutrophils % 2 % (0-10) 03/30/18 16:55 Lymphocytes % 24.3 % (20.0-50.0) 04/03/18 06:06 Monocytes % 7.8 % (2.0-10.0) 04/03/18 06:06 Eosinophils % 10.0 % (0.0-5.0) H 04/03/18 06:06 Basophils % 2.0 % (0.0-2.0) 04/03/18 06:06 Neutrophils (Manual) 78 % (40-80) 03/30/18 16:55 Lymphocytes 14 % (20-50) L 03/30/18 16:55 Monocytes 4 % (2-10) 03/30/18 16:55 Eosinophils 2 % (0-5) 03/30/18 16:55 Basophils 0 % (0-3) 03/30/18 16:55 PT 10.0 SECONDS (9.5-11.5) 03/30/18 16:55 INR 0.96 (0.5-1.4) 03/30/18 16:55 PTT (Actin FS) 25.7 SECONDS (26.0-38.0) L 03/30/18 16:55 Specimen Source ARTERIAL 04/03/18 05:44 Sample Site Right Radial 04/03/18 05:44 pH 7.31 (7.35-7.45) L 04/03/18 05:44 pCO2 34.0 mmHg (35.0-45.0) L 04/03/18 05:44 pO2 89.0 mmHg (80.0-100.0) 04/03/18 05:44 HCO3 18.4 mEq/L (20.0-26.0) L 04/03/18 05:44 Base Excess -8.3 mEq/L (-3.0-3.0) L 04/03/18 05:44 O2 Saturation 96.0 % (92.0-100.0) 04/03/18 05:44 Jeremiah Test Positive 04/03/18 05:44 Vent Rate N/A 04/03/18 05:44 Inspired O2 21 04/03/18 05:44 Tidal Volume N/A 04/03/18 05:44 PEEP N/A 04/03/18 05:44 Pressure (ins/psv/peep) N/A 04/03/18 05:44 Critical Value MM,CRIMINAL LEGAL ASSISTANT 04/03/18 05:44 Sodium 142 mEq/L (136-145) 04/03/18 06:06 Potassium 3.2 mEq/L (3.5-5.1) L 04/03/18 06:06 Chloride 118 mEq/L (98-107) H 04/03/18 06:06 Carbon Dioxide 17.2 mEq/L (21.0-31.0) L 04/03/18 06:06 Anion Gap 10.0 (7.0-16.0) 04/03/18 06:06 BUN 5 mg/dL (7-25) L 04/03/18 06:06 Creatinine 0.9 mg/dL (0.6-1.2) 04/03/18 06:06 Est GFR ( Amer) > 60.0 ml/min (>90) 04/03/18 06:06 Est GFR (Non-Af Amer) > 60.0 ml/min 04/03/18 06:06 BUN/Creatinine Ratio 5.6 04/03/18 06:06 Glucose 82 mg/dL (70-105) 04/03/18 06:06 Whole Bld Lactic Acid 0.83 mmol/L (0.60-1.99) 03/31/18 15:50 Calcium 8.4 mg/dL (8.6-10.3) L 04/03/18 06:06 Magnesium 2.2 mg/dL (1.9-2.7) 04/02/18 09:40 Total Bilirubin 0.3 mg/dL (0.3-1.0) 04/03/18 06:06 AST 7 U/L (13-39) L 04/03/18 06:06 ALT 3 U/L (7-52) L 04/03/18 06:06 Alkaline Phosphatase 63 U/L (34-104) 04/03/18 06:06 Troponin I < 0.01 ng/mL (0.01-0.05) L 03/30/18 16:55 Total Protein 5.1 gm/dL (6.0-8.3) L 04/03/18 06:06 Albumin 3.1 gm/dL (3.7-5.3) L 04/03/18 06:06 Globulin 2.0 gm/dL 04/03/18 06:06 Albumin/Globulin Ratio 1.6 (1.0-1.8) 04/03/18 06:06 Triglycerides 193 mg/dL (<150) H 03/30/18 16:55 Cholesterol 160 mg/dL (<200) 03/30/18 16:55 LDL Cholesterol Direct 64 mg/dL (75-193) L 03/30/18 16:55 HDL Cholesterol 68 mg/dL (23-92) 03/30/18 16:55 TSH 0.26 uIU/ml (0.34-5.60) L 03/30/18 16:55 Serum , Qual NEGATIVE (NEGATIVE) 03/30/18 16:55 Urine Source CLEAN C 03/30/18 16:50 Urine Color YELLOW 03/30/18 16:50 Urine Clarity HAZY (CLEAR) 03/30/18 16:50 Urine pH 6.0 (4.6 - 8.0) 03/30/18 16:50 Ur Specific [place] 1.025 (1.005-1.030) 03/30/18 16:50 Urine Protein 100 mg/dL (NEGATIVE) H 03/30/18 16:50 Urine Glucose (UA) NEGATIVE mg/dL (NEGATIVE) 03/30/18 16:50 Urine Ketones NEGATIVE mg/dL (NEGATIVE) 03/30/18 16:50 Urine Blood MODERATE (NEGATIVE) H 03/30/18 16:50 Urine Nitrate NEGATIVE (NEGATIVE) 03/30/18 16:50 Urine Bilirubin NEGATIVE (NEGATIVE) 03/30/18 16:50 Urine Urobilinogen 0.2 E.U./dL (0.2 - 1.0) 03/30/18 16:50 Ur Leukocyte Esterase MODERATE (NEGATIVE) H 03/30/18 16:50 Urine RBC 0-2 /hpf (0-5) 03/30/18 16:50 Urine WBC 6-10 /hpf (0-5) H 03/30/18 16:50 Ur Epithelial Cells FEW /lpf (FEW) 03/30/18 16:50 Urine Bacteria MANY /hpf (NONE SEEN) H 03/30/18 16:50 - Physical Exam Vitals and I&O: Vital Signs Temp 98.1 F 04/03/18 12:00 Pulse 61 04/03/18 12:00 Resp 18 04/03/18 12:00 BP 133/70 04/03/18 12:00 Pulse Ox 98 04/03/18 12:00 Intake & Output 04/02/18 04/03/18 04/03/18 18:59 06:59 18:59 Intake Total 100 1440 Balance 100 1440 Weight (lbs) 89.811 kg Intake: Intake, IV Amount 100 1200 D5-0.9%Ns 1,000 ml @ 100 1000 mls/hr IV .Q10H WILLIE Rx#: [id number] Levofloxacin 500mg/100mL 100 500 mg In 100 ml @ 100 mls/hr IV DAILY WILLIE Rx#: [id number] metroNIDAZOLE 500mg/NS 200 100mL 500 mg In 100 ml @ 100 mls/hr IV Q8HR WILLIE Rx #:[id number] Oral 240 Other: # Voids 2 # Bowel Movements 0 Weight Source Bedscale Active Medications: Current Medications Citric Acid/Sodium Citrate (Bicitra) 30 ml PO BID WILLIE Stop: 05/30/18 16:59 Last Admin: 04/03/18 08:24 Dose: 30 ml Fluconazole (Diflucan) 100 mg PO DAILY WILLIE Stop: 05/30/18 15:59 Last Admin: 04/03/18 08:22 Dose: 100 mg Levofloxacin (Levaquin Pb) 500 mg in 100 mls @ 100 mls/hr IV DAILY WILLIE Stop: 05/30/18 08:59 Last Admin: 04/03/18 08:23 Dose: 100 mls/hr Metronidazole (Flagyl) 500 mg in 100 mls @ 100 mls/hr IV Q8HR WILLIE Stop: 05/29/18 20:59 Last Infusion: 04/03/18 06:06 Dose: Infused Dextrose/Sodium Chloride (D5-0.9%Ns) 1,000 mls @ 100 mls/hr IV .Q10H WILLIE Stop: 06/01/18 09:29 Last Admin: 04/03/18 05:06 Dose: 100 mls/hr Lactobacillus Rhamnosus (Culturelle 15b) 1 each PO DAILY WILLIE Stop: 05/30/18 15:59 Last Admin: 04/03/18 08:22 Dose: 1 each Miscellaneous (Probiotic Screen) 1 ea MC PRN PRN PRN Reason: PROTOCOL Stop: 05/30/18 15:30 Morphine Sulfate (Morphine) 2 mg IV Q4HR PRN PRN Reason: Pain (Moderate) Stop: 06/01/18 11:14 Last Admin: 04/03/18 09:09 Dose: 2 mg Ondansetron HCl (Zofran) 4 mg IV Q6H PRN PRN Reason: Nausea Stop: 05/29/18 20:48 Last Admin: 04/03/18 09:10 Dose: 4 mg Potassium Chloride (Klor-Con) 20 meq PO DAILY WILLIE Stop: 06/01/18 13:59 Last Admin: 04/03/18 08:22 Dose: 20 meq General: no acute distress, well developed, well nourished HEENT: atraumatic, normocephalic, PERRLA, EOMI, moist mucous membrane Neck: supple, no thyromegaly, no lymphadenopathy Cardiovascular: S1S2, regular Lungs: clear to auscultation bilaterally, clear to percussion Abdomen: soft, bowel sounds, no tender, no distended, no mass Extremities: no cyanosis, no clubbing, no edema Neurological: awake, alert, oriented Skin: intact - Procedures Procedures: Procedures Procedure Code Date DX ULTRASOUND-ABDOMEN 88.76 01/28/97 Infectious Disease Assmt/Plan - Problem List Patient Problems: All Active Problems NAUSEA/VOMITING/DIARRHEA; VAGINAL LESION (Acute) - Assessment Assessment: 1. Leukocytosis improved. 2. Gastroenteritis. 3. Vaginitis. 4. Metabolic acidosis improving. Lactic acid is normal. 5. Anemia. - Plan Plan: Continue same treatment. Gynecological consult
--- NOTE | 2018-04-03 19:25 | Discharge Summary ---
DATE OF DISCHARGE: 04/03/2018 IDENTIFICATION: A 53-year-old female. PRINCIPAL DIAGNOSES: 1. Anion gap metabolic acidosis secondary to elevated lactic acid. 2. Severe electrolyte imbalance, resolved. 3. Acute gastroenteritis, resolved. 4. Vaginal candidiasis. 5. Left vulvar mass, workup to be done as an outpatient. BRIEF STATEMENT FOR THE REASON FOR ADMISSION: A 53-year-old female presented to Emergency Room for evaluation of acute onset of nausea, vomiting, and diarrhea. The patient was worked up in the Emergency Room and subsequently admitted to the hospital for further treatment. Please refer to my H and P for further information. HOSPITAL COURSE: The patient was admitted to telemetry unit. The patient had electrolytes imbalance, which was corrected, IV fluid, IV antibiotic was started. Stool studies were also ordered. The patient was also seen by Infectious Disease as well. The patient's stool study were not sent because her diarrhea started to resolve as well. Urine cultures did reveal multiple organism present, but none predominant, is suspected from contamination as well. Blood cultures were negative. MRSA isolation was negative. The patient had a significant amount of pain in the perineal area, which was inspected and noted to have a left vulvar mass. CT scan of the abdomen was unremarkable. In the Emergency Room, pelvic ultrasound was done, which did reveal the patient had a 3.1 x 1.9 cm left lower pelvis mass, the inflammatory versus neoplastic process were suspected. I did have a discussion with the patient in length about the lesion and recommended that the patient should see the files supervisor since the patient did not have gynecology case supervisor and 7th grade social studies teacher did work with the patient and established an appointment to see a files supervisor in 04/12/2018. The patient did have a significant improvement with the symptoms. I did discharge this patient home in stable condition with prescription of Levaquin as well as Diflucan. The patient will be followed by litigator as well as the files supervisor as scheduled. JOB# [id number]
--- NOTE | 2018-04-04 02:33 | Progress Notes ---
DATE: 04/03/2018 IDENTIFICATION: A 53-year-old female. SUBJECTIVE: The patient was seen and examined. No new complaints. The patient is eating, ambulating and pain is well controlled. The patient has no more diarrhea or vomiting. PHYSICAL EXAMINATION: VITAL SIGNS: See nurse's note. HEENT: No facial asymmetry. NECK: Supple, no JVD. No hepatojugular reflex. No lymphadenopathy, thyromegaly. HEART: Irregular. CHEST AND LUNG: Equal in expansion, no expiratory wheezing. ABDOMEN: Soft. No guarding or rigidity. Liver, spleen palpable. No palpable mass. EXTREMITIES: No edema. NEUROLOGICAL: Nonfocal. CLINICAL IMPRESSION: 1. Acute gastroenteritis, resolved. 2. Right pelvic mass workup to be done as an outpatient. PLAN: The patient will be discharged to home today. The patient will be followed by primary care and DIGITAL ENGINEER as scheduled. JOB# [id number]
== END 2018-04-03 13:26 | disposition home or self-care (01) | DRG 249 ==
LOC: ER 16:20 → TELE 21:01
PROVIDERS: ADMIT Internal Medicine; ATTEND Internal Medicine
DX: K52.9 Noninfective gastroenteritis and colitis, unspecified (principal); N17.9 Acute kidney failure, unspecified; E87.2 Acidosis; E87.8 Other disorders of electrolyte and fluid balance, not elsewhere classified; D72.829 Elevated white blood cell count, unspecified; D64.9 Anemia, unspecified; B37.3 Candidiasis of vulva and vagina; E87.6 Hypokalemia; N76.0 Acute vaginitis; R19.00 Intra-abdominal and pelvic swelling, mass and lump, unspecified site
CPT/HCPCS: 36415-UA; 36600-90; 76856-TC; 80053-TC; 80061-TC; 81001-TC; 82803-TC; 83605; 83735-TC; 84443-TC; 84484-TC; 84703-TC; 85007-TC; 85025-TC; 85610-TC; 85730-TC; 87086-90; 90799; 93005; 96375; J0696; J1885; J1956; J2060; J2270; J2405; J3480; J7030; J7042; Z7610